=== PATIENT | female | born 1975 | race Caucasian/White ===

== ENCOUNTER → 2022-04-02 | Outpatient (CLI) | payer BC ==
--- NOTE | 2022-04-02 13:36 | Diagnostic Imaging Report ---
EXAMINATION: CT of the temporal bones without contrast. INDICATION: Mixed hearing loss. Symptoms for 6 months. COMPARISON: None. TECHNIQUE: Thin section helical CT was performed through the temporal bones without contrast and reformatted into coronal and sagittal planes. Dose reduction techniques were utilized. FINDINGS: On the right, the external auditory canal is patent. There is no evidence of thickening of the tympanic membrane. The ossicles on the right appear intact. There is no evidence of soft tissue identified within the middle ear. There is no evidence of bony erosion. The scutum appears intact. The tegmen tympani and tegmen mastoideum are intact. The internal auditory canal is of normal size. The course of the facial nerve is normal. There is no evidence of jugular bulb dehiscence. There is no aberrancy of the right internal carotid artery. The mastoid air cells are clear. The semicircular canals, cochlea and vestibule demonstrate normal CT appearances. There is no enlargement of the vestibular aqueduct. On the left, the external auditory canal is patent. There is no evidence of thickening of the tympanic membrane. The ossicles on the left appear intact. There is no evidence of soft tissue identified within the middle ear. There is no evidence of bony erosion. The scutum appears intact. The tegmen tympani and tegmen mastoideum are intact. The internal auditory canal is of normal size. The course of the facial nerve is normal. There is no evidence of jugular bulb dehiscence. There is no aberrancy of the left internal carotid artery. A small amount of fluid is seen within the superiormost mastoid air cells on the left. The semicircular canals, cochlea and vestibule demonstrate normal CT appearances. There is no enlargement of the vestibular aqueduct. Visualized intracranial contents demonstrate no evidence of mass effect. The basilar cisterns are patent. Temporomandibular joints are within normal limits. IMPRESSION: 1. Unremarkable CT appearance of the bilateral middle and inner ear structures. 2. Small amount of fluid in the superior most mastoid air cells on the left. Dictated by: Dictated on workstation # [id number]
== END ==
LOC: RAD 11:33
PROVIDERS: ATTEND Otolaryngology Otolaryngology/Facial Plastic Surgery
DX: H90.8 Mixed conductive and sensorineural hearing loss, unspecified (principal)
CPT/HCPCS: 70480